=== PATIENT | female | born 1955 | race Caucasian/White ===

== ENCOUNTER 2018-05-27 18:06 | Emergency (ER) | payer BC ==
[~2018-05-27] VITALS: Ht 152.4 cm; Wt 70.3 kg
[2018-05-27 18:10] VITALS: BP_SYST 146
--- NOTE | 2018-05-27 18:15 | NUR ---
Patient triaged and placed in waiting room. VSS and patient appears in no acute distress at this time. Accompanied by SPOUSE, awaiting available bed, and MD notified of need for MSE.
--- NOTE | 2018-05-27 19:19 | NUR ---
Patient to ER bed 08 to gown for evaluation. Side rails up. Report given to MURTAZA SIERRA.
--- NOTE | 2018-05-27 19:20 | NUR ---
Patient A/O x 4 presented to ED c/o of ABD pain that started around 5pm today, 01/04 but pt says pain has subsided now to 07/07. Pt denies fever, N&v. No diarrhea or constipation per patient.Breathing even and unlabored. Pt VSS. No SOB or distress noted. Will continue to monitor.
--- NOTE | 2018-05-27 19:49 | NUR ---
ER Dr. Cotter at bedside examining patient.
[2018-05-27 20:36] VITALS: BP_SYST 135
--- NOTE | 2018-05-27 20:36 | NUR ---
Patient given written and verbal discharge instructions and verbalizes understanding. ER MD discussed with patient the results and treatment provided. Patient in stable condition. ID arm band removed. Patient educated on pain management and to follow up with PMD. Pain Scale 0/10. Opportunity for questions provided and answered.
== END 2018-05-27 20:36 | disposition home or self-care (01) ==
LOC: SED 18:06
DX: R10.30 Lower abdominal pain, unspecified (principal); E11.9 Type 2 diabetes mellitus without complications; I10 Essential (primary) hypertension
CPT/HCPCS: 99283